=== PATIENT | male | born 1955 | race Two or more races ===

== ENCOUNTER 2018-12-18 07:21 | Emergency (ER) | payer BC ==
[2018-12-18] MEDS ORDERED: PREDNISONE 20 MG TAB PO ONE (08:07)
[2018-12-18] MEDS ORDERED: PREDNISONE 20 MG TAB ONE (08:17)
[2018-12-18 08:47] VITALS: RESP 18; TEMP 97.7
[2018-12-18 08:53] VITALS: BP 134/82; PULSE 74; O2SAT 99
== END 2018-12-18 08:32 | disposition home or self-care (01) ==
LOC: ED 07:21
DX: L50.9 Urticaria, unspecified (principal); E11.9 Type 2 diabetes mellitus without complications
CPT/HCPCS: 99282; A9270-GY